=== PATIENT | female | born 1960 | race African-American/Black ===

== ENCOUNTER 2025-04-30 15:32 | Emergency (ER) | payer MEDICARE ==
[~2025-04-30] VITALS: Ht 170.2 cm; Wt 89.1 kg
[2025-04-30 15:38] VITALS: TEMP 97.9
[2025-04-30 16:29] LABS: PLATELET COUNT (AUTO) 291 K/uL (150-450); RED BLOOD CELL COUNT(AUTO) 4.64 MIL/uL (4.00-5.20); RED CELL DISTRIBUTION WIDTH 13.9 % (11.5-14.5); WHITE BLOOD COUNT (AUTO) 6.7 K/uL (4.5-11.0)
[2025-04-30 16:39] LABS: CALCIUM, TOTAL 9.1 mg/dL (8.8-10.5); CREATININE 1.12 mg/dL (0.60-1.30); GLOMERULAR FILTR. RATE CALC 59.0 mL/min (>60); GLUCOSE,RANDOM 206.0 mg/dL (70-110); SODIUM SERUM 140.0 mmol/L (136-145); UREA NITROGEN, BLOOD 19.0 mg/dL (7-18)
[2025-04-30 19:35] LABS: ASPARTATE AMINOTRANSFERASE 19.0 U/L (15-37); TOTAL PROTEIN, SERUM 7.4 g/dL (6.4-8.2)
[2025-04-30 19:57] LABS: APPEARANCE,URINE CLEAR (CLEAR); GLUCOSE, URINE (UA) TRACE mg/dL (NEGATIVE); LEUKOCYTE ESTERASE ,URINE NEGATIVE (NEGATIVE); NITRATE,URINE NEGATIVE (NEGATIVE); OCCULT BLOOD,URINE NEGATIVE (NEGATIVE); SPECIFIC GRAVITIY, URINE 1.025 (1.003-1.030)
[2025-04-30] MEDS ORDERED: POLY17PO62 PO (22:06)
[2025-04-30 22:25] VITALS: BP 137/69; PULSE 63; RESP 20; O2SAT 98
== END 2025-04-30 22:49 | disposition home or self-care (01) ==
LOC: EMS 15:32
DX: K59.00 Constipation, unspecified (principal); R10.11 Right upper quadrant pain; K76.0 Fatty (change of) liver, not elsewhere classified; E11.9 Type 2 diabetes mellitus without complications; I11.0 Hypertensive heart disease with heart failure; I50.9 Heart failure, unspecified
CPT/HCPCS: 74018; 76705; 80048; 80076; 81003; 85025; 93005; 99285; 36415-L1; 36415-TC